=== PATIENT | male | born 1980 | race Caucasian/White ===

== ENCOUNTER 2018-04-05 17:55 | Emergency (ER) | payer SELFPAY ==
[~2018-04-05] VITALS: Ht 180.3 cm; Wt 108.9 kg
--- NOTE | 2018-04-05 18:20 | NUR ---
RECIEVED PATIENT TO ED BED 14. PT IS RECENT BINGED DRINKING X 6 DAYS. APPEARS ANXIOUS. ON CONT MONITORING. NAD. ALL NEEDS ARE ATTENDED, KEPT COMFORTABLE. WILL CONT TO MONITOR
[2018-04-05] MEDS ORDERED: LORAZEPAM 1 MG TABLET PO ONE (18:30)
[2018-04-05] MEDS ORDERED: IV NS 0.9% 1,000 ML BAG IV ONE (18:30)
[2018-04-05] MEDS ORDERED: LORAZEPAM 1 MG TABLET ONE (18:37)
[2018-04-05 18:42] LABS: BASOPHILS # (AUTO) 0.1 /CMM (0.0-0.2); BASOPHILS % (AUTO) 0.7 % (0.0-2.0); EOSINOPHILS % (AUTO) 0.5 % (0.0-6.0); HEMATOCRIT 49 % (39-51); HEMOGLOBIN 17.3 g/dL (13.5-17.5); LYMPHOCYTES # (AUTO) 1.7 /CMM (0.8-4.8); MEAN CORPUSCULAR HEMOGLOBIN 31 PG (26.0-33.0); MEAN CORPUSCULAR HGB CONC 36 g/dl (31.0-36.0); MEAN CORPUSCULAR VOLUME 87 fL (80-96); MONOCYTES # (AUTO) 0.5 /CMM (0.1-1.30); MONOCYTES % (AUTO) 5.7 % (2.0-12.0); NEUTROPHILS # (AUTO) 6.7 /CMM (1.8-8.9); NEUTROPHILS % (AUTO) 74.1 % (43.0-81.0); PLATELET COUNT (AUTO) 291 /CMM (150-450); RDW COEFFICIENT OF VARIATION 12.2 (11.5-15.0)
[2018-04-05 18:53] LABS: CALCIUM, SERUM 8.5 mg/dL (8.5-10.1); CARBON DIOXIDE 21 mmol/L (21-32); CHLORIDE 100 mmol/L (98-107); CREATININE 0.9 mg/dL (0.6-1.3); GLUCOSE 124 mg/dL (74-106); POTASSIUM 3.6 mmol/L (3.5-5.1); SODIUM SERUM 135 mmol/L (136-145); UREA NITROGEN, BLOOD 7 mg/dL (7-18)
[2018-04-05 19:01] LABS: ACETAMINOPHEN < 2 ug/ml (10-30); ALANINE AMINOTRANSFERASE 49 U/L (12-78); ALBUMIN 4.1 g/dL (3.4-5.0); ALCOHOL, BLOOD 233 mg/dL (0-0); ALKALINE PHOSPHATASE 91 U/L (46-116); ASPARTATE AMINOTRANSFERASE 39 U/L (15-37); BILIRUBIN,DIRECT 0.2 mg/dL (0.0-0.2); BILIRUBIN,TOTAL 0.6 mg/dL (0.2-1.0); SALICYLATE 1.6 mg/dL (2.8-20.0); TOTAL PROTEIN, SERUM 8.4 g/dL (6.4-8.2)
--- NOTE | 2018-04-05 19:35 | NUR ---
RECEIVED REPORT FROM DAVIS HUSAIN FOR [facility]. PT RESTING IN BED WITH NO S/S OF DISTRESS NOTED.
[2018-04-05 19:36] VITALS: BP 129/97
[2018-04-05] MEDS ORDERED: ACETAMINOPHEN ES 500 MG TABLET ONE (19:52)
[2018-04-05] MEDS ORDERED: ACETAMINOPHEN ES 500 MG TABLET PO ONE (20:00)
--- NOTE | 2018-04-05 21:02 | NUR ---
Patient eloped from facility. ER ANETTE [facility] notified. Last known time pt seen 1999. Pt was seen out of bed walking around. pt was told to wait in bed while discharge paperwork is being prepared. Pt was cooperative throughout ER visit. Pt had an IV on the Right arm that may not have been dc'ed. pt is a white male and blonde hair. Charge nurse notified. [employer] being notified.
--- NOTE | 2018-04-05 21:06 | NUR ---
CALLED [facility] SPOKE WITH [employer] [phone]. REPORTED THAT THE PATIENT ELOPED WITH AN IV IN HIS RIGHT ARM.
== END 2018-04-05 21:13 | disposition left against medical advice (07) ==
LOC: ER 18:00
DX: F10.229 Alcohol dependence with intoxication, unspecified (principal); Y90.7 Blood alcohol level of 200-239 mg/100 ml
CPT/HCPCS: 36415; 80048-TC; 80076-TC; 85025-TC; A4606; G0480; J7030; Z7610

== ENCOUNTER 2018-10-17 07:37 | Emergency (ER) | payer SELFPAY ==
[~2018-10-17] VITALS: Ht 180.3 cm; Wt 98.4 kg
--- NOTE | 2018-10-17 07:46 | NUR ---
The patient came to ER for possible alcohol withdrawal; last alcohol use few hours per patient report
--- NOTE | 2018-10-17 07:50 | NUR ---
DR WHEELER AT BEDSIDE
[2018-10-17 08:09] VITALS: BP 132/83
--- NOTE | 2018-10-17 08:09 | NUR ---
Patient discharged to home in stable condition. Written and verbal after care instructions given. Patient verbalizes understanding of instruction.
== END 2018-10-17 08:10 | disposition home or self-care (01) ==
LOC: ER 07:41
DX: F10.10 Alcohol abuse, uncomplicated (principal); Y90.9 Presence of alcohol in blood, level not specified
CPT/HCPCS: 99283; A4606

== ENCOUNTER 2019-05-12 15:54 | Emergency (ER) | payer SELFPAY | END 2019-05-12 17:47 | disposition left against medical advice (07) | DX: F10.20 Alcohol dependence, uncomplicated (principal); Y90.9 Presence of alcohol in blood, level not specified ==